=== PATIENT | male | born 2000 | race Caucasian/White ===

== ENCOUNTER 2021-04-15 03:04 | Emergency (ER) | payer OTHER ==
[~2021-04-15] VITALS: Ht 180.3 cm; Wt 94.5 kg
[2021-04-15 03:05] VITALS: BP 133/76
[2021-04-15] MEDS ORDERED: IBUP1TAB7 PO (03:16)
[2021-04-15] MEDS ORDERED: ACETAMINOPHEN TAB 650MG DOSE (2X325MG) PO ONE (04:30)
[2021-04-15 04:43] LABS: RSV AMPLIFICATION NEGATIVE (NEGATIVE)
== END 2021-04-15 06:43 | disposition home or self-care (01) ==
LOC: M ED 03:04
DX: J02.9 Acute pharyngitis, unspecified (principal); F17.290 Nicotine dependence, other tobacco product, uncomplicated